=== PATIENT | male | born 1975 | race Caucasian/White ===

== ENCOUNTER 2017-05-17 23:24 | Emergency (ER) | payer OTHER ==
[~2017-05-17] VITALS: Ht 172.7 cm; Wt 77.1 kg
== END 2017-05-18 01:20 | disposition home or self-care (01) ==
LOC: ER 23:24
DX: S01.81XA Laceration without foreign body of other part of head, initial encounter (principal); Z87.891 Personal history of nicotine dependence; W01.190A Fall on same level from slipping, tripping and stumbling with subsequent striking against furniture, initial encounter
CPT/HCPCS: 12011; 99282

== ENCOUNTER 2019-10-22 10:59 | Emergency (ER) | payer OTHER ==
[~2019-10-22] VITALS: Ht 172.7 cm; Wt 76.2 kg
== END 2019-10-22 12:16 | disposition home or self-care (01) ==
LOC: ER 10:59
DX: T16.2XXA Foreign body in left ear, initial encounter (principal); Z87.891 Personal history of nicotine dependence; Z23 Encounter for immunization; W45.8XXA Other foreign body or object entering through skin, initial encounter
CPT/HCPCS: 69200; 90471; 90714; 99282-25

== ENCOUNTER 2024-08-21 09:58 | Emergency (ER) | payer OTHER ==
[~2024-08-21] VITALS: Ht 167.6 cm; Wt 74.8 kg
[2024-08-21 10:40] VITALS: BP 111/88
[2024-08-21] MEDS ORDERED: Vibramycin100 MG PO (10:46)
== END 2024-08-21 10:40 | disposition home or self-care (01) ==
LOC: ER 09:58
DX: S30.861A Insect bite (nonvenomous) of abdominal wall, initial encounter (principal); W57.XXXA Bitten or stung by nonvenomous insect and other nonvenomous arthropods, initial encounter; L03.311 Cellulitis of abdominal wall
CPT/HCPCS: 99282